=== PATIENT | female | born 1955 | race Caucasian/White ===

== ENCOUNTER 2016-09-05 10:48 | Day surgery (SDC) | payer OTHER ==
[~2016-09-05] VITALS: Ht 152.4 cm; Wt 65.5 kg
[~2016-09-05 10:48] MED LIST: ASPI-496 PO; CALCIUM PO; FISH OIL PO; GLUC1CAP57 PO; MULT-516 PO; OMEP-110 PO; VALS320T2 PO
[2016-09-05] MEDS ORDERED: LACTATED RINGERS 1,000 ML IV SCH ×3 (11:24→13:26)
[2016-09-05 11:33] VITALS: BP 129/85
[2016-09-05] MEDS ORDERED: LIDOCAINE 1%, 2ML ONE (11:46)
[2016-09-05] MEDS ORDERED: LIDOCAINE 1%, 2ML SQ PRN (12:00)
[2016-09-05] MEDS ORDERED: FENTANYL PF 250 MCG/5ML ONE (12:22)
[2016-09-05] MEDS ORDERED: MIDAZOLAM 1 MG/ML, 2ML ONE (12:23)
[2016-09-05] MEDS ORDERED: BUPIVACAINE/PF-EPI 0.5% 1:200K ONE (12:30)
[2016-09-05] MEDS ORDERED: PROPOFOL 10 MG/ML, 20ML ONE (12:51)
[2016-09-05] MEDS ORDERED: DEXAMETHASONE 4 MG/ML, 1ML ONE (12:51)
[2016-09-05] MEDS ORDERED: CEFAZOLIN 1,000 MG ONE (12:51)
[2016-09-05] MEDS ORDERED: SUCCINYLCHOLINE 20 MG/ML, 10ML ONE (12:51)
[2016-09-05] MEDS ORDERED: ONDANSETRON 2MG/ML, 2ML ONE (12:51)
[2016-09-05] MEDS ORDERED: ROCURONIUM 10 MG/ML ONE (12:51)
[2016-09-05] MEDS ORDERED: BUPIVACAINE/PF-EPI 0.5% 1:200K INFIL ONE (13:09)
[2016-09-05] MEDS ORDERED: ONDANSETRON 2MG/ML, 2ML IVPush PRN ×2 (13:30)
[2016-09-05] MEDS ORDERED: HYDROmorphone 2 MG/ML, 1ML IVPush PRN (13:30)
[2016-09-05] MEDS ORDERED: ACETAMINOPHEN 325 MG TABLET PO PRN (13:30)
[2016-09-05] MEDS ORDERED: METOCLOPRAMIDE 5 MG/ML, 2ML IV PRN (13:30)
[2016-09-05] MEDS ORDERED: DIPHENHYDRAMINE 50 MG/ML, 1ML IVPush PRN (13:30)
[2016-09-05] MEDS ORDERED: LABETALOL 5MG/ML, 20ML IV PRN (13:30)
[2016-09-05] MEDS ORDERED: OXYcodone 5 MG/5 ML ORAL.SOL UDC PO PRN ×2 (13:30)
[2016-09-05] MEDS ORDERED: hydrALAzine 20 MG/ML, 1ML IV PRN (13:30)
[2016-09-05] MEDS ORDERED: SUGAMMADEX 200 MG/2 ML IVPush ONE (13:31)
[2016-09-05] MEDS ORDERED: OXYcodone 5 MG/5 ML ORAL.SOL UDC ONE (13:42)
[2016-09-05] MEDS ORDERED: FENTANYL PF 100 MCG/2ML ONE (13:42)
[2016-09-05] MEDS: FENTANYL PF 100 MCG/2ML IV PRN ×2 (13:44→13:58)
[2016-09-05] MEDS ORDERED: HYDROmorphone 2 MG/ML, 1ML ONE (14:10)
[2016-09-05] MEDS: HYDROmorphone 1 MG/ML, 1ML IV PRN ×2 (14:12→14:26)
[2016-09-05] MEDS ORDERED: OXYcodone/APAP 5/325MG TABLET ONE (18:09)
[2016-09-05] MEDS ORDERED: OXYcodone IR 5MG TABLET PO PRN ×2 (18:30→19:15)
== END 2016-09-05 19:00 | disposition home or self-care (01) ==
LOC: OUT 10:48
PROVIDERS: ATTEND Surgery
DX: K81.1 Chronic cholecystitis (principal); I10 Essential (primary) hypertension; K21.9 Gastro-esophageal reflux disease without esophagitis; Z72.89 Other problems related to lifestyle; Z87.891 Personal history of nicotine dependence; M19.90 Unspecified osteoarthritis, unspecified site; Z98.890 Other specified postprocedural states
CPT/HCPCS: 47562; 88304; 93005; J0330; J0690; J1100; J1170; J2250; J2405; J2704; J3010; J3490; J7120